=== PATIENT | female | born 1975 | race Hispanic/Latino ===

== ENCOUNTER 2017-07-19 12:12 | Emergency (ER) | payer MEDICARE, OTHER ==
[~2017-07-19] VITALS: Ht 162.6 cm; Wt 87.5 kg
[2017-07-19] MEDS ORDERED: LISINOPRIL40 MG PO (12:29)
[2017-07-19] MEDS ORDERED: NEURONTIN300 MG PO (12:30)
[2017-07-19] MEDS ORDERED: MINIPRESS1 MG PO (12:30)
[2017-07-19] MEDS ORDERED: MAXALT MLT10 MG PO (12:31)
== END 2017-07-19 13:43 | disposition home or self-care (01) ==
LOC: ED 12:12
DX: R51 Headache (principal); F15.10 Other stimulant abuse, uncomplicated; Z88.0 Allergy status to penicillin; Z88.5 Allergy status to narcotic agent; Z88.6 Allergy status to analgesic agent; Z88.8 Allergy status to other drugs, medicaments and biological substances; Z79.899 Other long term (current) drug therapy
CPT/HCPCS: 96361; 96374; 96375; 99282; J1200; J2765; J7030